=== PATIENT | female | born 2000 | race Caucasian/White ===

== ENCOUNTER 2018-02-05 12:32 | Outpatient (CLI) | payer OTHER | END 2018-02-05 12:33 | disposition home or self-care (01) | LOC: BICRAD 12:32 | PROVIDERS: ATTEND Physician Assistant | DX: M41.9 Scoliosis, unspecified (principal) | CPT/HCPCS: 72100 ==

== ENCOUNTER 2018-02-21 10:15 | Outpatient (CLI) | payer OTHER | END 2018-02-21 10:16 | disposition home or self-care (01) | LOC: BICRAD 10:15 | PROVIDERS: ATTEND Physician Assistant | DX: M41.84 Other forms of scoliosis, thoracic region (principal); M25.78 Osteophyte, vertebrae | CPT/HCPCS: 72040; 72070 ==

== ENCOUNTER 2018-06-29 16:19 | Emergency (ER) | payer OTHER ==
[2018-06-29] MEDS ORDERED: Ondansetron HCl/PF 4 MG/2 ML Vial ONE (17:06)
[2018-06-29] MEDS ORDERED: Famotidine/PF 20 mg/2ml Vial ONE (17:14)
[2018-06-29] MEDS ORDERED: Acetaminophen 325 MG TAB ONE (17:14)
[2018-06-29 17:28] LABS: ALT (SGPT) 31 U/L (8-55); AST (SGOT) 18 U/L (5-34); Albumin 4.3 g/dL (3.5-5.0); Alkaline Phosphatase 50 U/L (40-150); BUN (Urea Nitrogen) 15 mg/dL (7.0-18.7); Bilirubin, Total 0.9 mg/dL (0.2-1.2); Calc. Creatinine Clearance 0 mL/min (70-130); Calcium 9.7 mg/dL (7.8-10.44); Carbon Dioxide 19 mmol/L (22-29); Chloride 105 mmol/L (98-107); Estimated GFR-MDRD Greater than 90; Globulin 3.4 g/dL (2.4-3.5); Glucose 123 mg/dL (70-105); Potassium 4.4 mmol/L (3.5-5.1); Protein, Total 7.7 g/dL (6.0-8.3); Sodium 135 mmol/L (136-145)
[2018-06-29 17:36] LABS: Anion Gap 15 mmol/L (10-20)
[2018-06-29 17:46] LABS: #Lymphocytes 0.5 thou/uL (1.20-3.40); #Monocytes 0.5 thou/uL (0.11-0.59); #Neutrophils 11.2 thou/uL (1.40-6.50); %Basophils 0.3 % (0.0-1.0); %Eosinophils 0.2 % (0.0-10.0); %Lymphocytes 3.9 % (28.0-48.0); %Monocytes 4.3 % (0.0-4.0); %Neutrophils 91.4 % (31.0-61.0); Hemoglobin 15.8 g/dL (12.0-16.0); Mean Corpuscular HGB CONC 33.6 g/dL (32.0-36.0); Mean Corpuscular Hemoglobin 28.3 pg (25.0-35.0); Mean Corpuscular Volume 84.1 fL (78.0-98.0); Mean Platelet Volume 7.9 fL (7.4-10.4); Platelet Count 300 thou/uL (130-400); Red Blood Cell (RBC) Count 5.59 mill/uL (4.00-5.20); White Blood Cell (WBC) Count 12.2 thou/uL (4.8-10.8)
[2018-06-29 19:31] LABS: Bilirubin Negative (Negative); Blood, Urine Negative (Negative); Clarity CLEAR (Clear); Glucose, Urine (Dipstick) Negative (Negative); Leukocyte Negative (Negative); Nitrite Negative (Negative); Protein, Urine (Dipstick) Negative (Neg-Trace); Specific Gravity, Urine 1.026 (1.002-1.036); Urobilinogen 0.2 mg/dL (0.2-1.0)
[2018-06-29 19:32] LABS: Pregnancy Test - Urine (BHCG) Negative (Negative); Specific Gravity 1.026 (1.002-1.036)
[2018-06-29 19:33] LABS: Pregu Control Background? CLEAR/WHITE (CLR/WHITE); Pregu Control Bar Appear? YES (CONTROL BAR)
== END 2018-06-29 20:01 | disposition home or self-care (01) ==
LOC: ERS 16:19
DX: R19.7 Diarrhea, unspecified (principal); R11.2 Nausea with vomiting, unspecified
CPT/HCPCS: 80053; 81003; 81025; 83690; 85025; 93005; 96361; 96374; J2405; S0028

== ENCOUNTER 2018-07-01 09:51 | Emergency (ER) | payer OTHER ==
[2018-07-01] MEDS ORDERED: Mag-Al 1200 mg/1200 mg/30 ML UDCUP ONE (11:03)
[2018-07-01] MEDS ORDERED: Lidocaine Viscous Sol 2% 15 ml UD Cup ONE (11:03)
--- NOTE | 2018-07-01 11:18 | RAD ---
PORTABLE CHEST: History: Chest pain FINDINGS: Heart size and mediastinum within normal limits. The lungs are clear of any infiltrative process. No bony findings. IMPRESSION: No active intrathoracic disease. POS: [facility]
== END 2018-07-01 12:26 | disposition home or self-care (01) ==
LOC: ERS 09:51
DX: R07.89 Other chest pain (principal); R11.2 Nausea with vomiting, unspecified; R19.7 Diarrhea, unspecified; F32.9 Major depressive disorder, single episode, unspecified
CPT/HCPCS: 71045; 93005

== ENCOUNTER 2019-06-07 03:52 | Emergency (ER) | payer OTHER ==
[2019-06-07 04:53] LABS: HIV (1/2) Antibody/Antigen Non-Reactive (NonReactive); HIV 1/2 INDEX 0.08 S/CO (<1.00); Hep C IgG Ab Non-Reactive (NonReactive); Hep C Index 0.17 S/CO (0-0.79)
[2019-06-07 05:19] LABS: HBSAB Concentration 216.66 mIU/mL; Hep B Surf AB Reactive (NonReactive)
== END 2019-06-07 04:29 | disposition home or self-care (01) ==
LOC: ERS 03:52
DX: S61.032A Puncture wound without foreign body of left thumb without damage to nail, initial encounter (principal); W26.8XXA Contact with other sharp object(s), not elsewhere classified, initial encounter
CPT/HCPCS: 36415; 86706; 86803; 87389; 99283

== ENCOUNTER 2020-05-22 16:32 | Emergency (ER) | payer OTHER ==
[2020-05-22 17:41] LABS: HIV (1/2) Antibody/Antigen Non-Reactive (NonReactive); HIV 1/2 INDEX 0.07 S/CO (<1.00); Hep C IgG Ab Non-Reactive (NonReactive); Hep C Index 0.27 S/CO (0-0.79)
[2020-05-22 17:44] LABS: HBSAB Concentration 103.21 mIU/mL; Hep B Surf AB Reactive (NonReactive)
== END 2020-05-22 17:16 | disposition home or self-care (01) ==
LOC: ERS 16:32
DX: S51.832A Puncture wound without foreign body of left forearm, initial encounter (principal); F41.9 Anxiety disorder, unspecified; F32.9 Major depressive disorder, single episode, unspecified; Z79.899 Other long term (current) drug therapy; W46.1XXA Contact with contaminated hypodermic needle, initial encounter; Y92.239 Unspecified place in hospital as the place of occurrence of the external cause; Y99.0 Civilian activity done for income or pay
CPT/HCPCS: 86706; 86803; 87389; 99283

== ENCOUNTER 2020-11-16 05:12 | Emergency (ER) | payer OTHER ==
[2020-11-16] MEDS ORDERED: Boostrix 0.5 ML (Tdap) VIAL ONE (05:26)
[2020-11-16 06:39] LABS: HIV (1/2) Antibody/Antigen Non-Reactive (NonReactive); HIV 1/2 INDEX 0.14 S/CO (<1.00); Hep C IgG Ab Non-Reactive (NonReactive); Hep C Index 0.12 S/CO (0-0.79)
[2020-11-16 06:43] LABS: HBSAB Concentration 68.89 mIU/mL; Hep B Surf AB Reactive (NonReactive)
== END 2020-11-16 05:38 | disposition home or self-care (01) ==
LOC: ERS 05:12
DX: S61.232A Puncture wound without foreign body of right middle finger without damage to nail, initial encounter (principal); W46.1XXA Contact with contaminated hypodermic needle, initial encounter; Z23 Encounter for immunization
CPT/HCPCS: 36415; 86706; 86803; 87389; 90471; 90715

== ENCOUNTER 2021-05-02 08:02 | Emergency (ER) | payer OTHER | END 2021-05-02 10:15 | disposition home or self-care (01) | LOC: ERS 08:02 | DX: M54.6 Pain in thoracic spine (principal); X50.0XXA Overexertion from strenuous movement or load, initial encounter | CPT/HCPCS: 93005 ==